=== PATIENT | male | born 1970 | race African-American/Black ===

== ENCOUNTER 2018-02-17 06:07 | Emergency (ER) | payer SELFPAY ==
[~2018-02-17] VITALS: Ht 177.8 cm; Wt 68.0 kg
--- NOTE | 2018-02-17 06:17 | Emergency Room Report ---
History of Present Illness General Chief Complaint: To Be Triaged Source: Patient Present Illness HPI Is a 39-year-old male brought in by police for medical clearance. He has a small cut on his palm of his right hand. He refuse any treatment. Denies any fever chills but denies any nausea vomiting. No pain. No other injury. Allergies: Coded Allergies: No Known Allergies (Unverified , 02/17/18) Patient History Past Medical History: see triage record, old chart reviewed Past Surgical History: none Pertinent Family History: none Social History: Denies: smoking Immunizations: other Reviewed Nursing Documentation: PMH: Agreed; PSxH: Agreed Review of Systems Eye: Denies: eye pain, blurred vision ENT: Denies: ear pain, nose congestion, throat swelling Respiratory: Denies: cough, shortness of breath Cardiovascular: Denies: chest pain, palpitations Gastrointestinal: Denies: abdominal pain, diarrhea, nausea, vomiting Musculoskeletal: Denies: back pain, joint pain Skin: Denies: rash Neurological: Denies: headache, numbness Endocrine: Denies: increased thirst, increased urine Hematologic/Lymphatic: Denies: easy bruising All Other Systems: negative except mentioned in HPI Physical Exam Sp02 EP Interpretation: reviewed, normal General Appearance: well appearing, no apparent distress, alert Head: normocephalic, atraumatic Eyes: bilateral eye PERRL, bilateral eye EOMI ENT: hearing grossly normal, normal pharynx Neck: full range of motion, supple, no meningismus Respiratory: chest non-tender, lungs clear, normal breath sounds Cardiovascular #1: regular rate, rhythm, no murmur Gastrointestinal: normal bowel sounds, non tender, no mass, no organomegaly, no bruit, non-distended Musculoskeletal: back normal, gait/station normal, normal range of motion, other - Small abrasion to the palm of right hand Psychiatric: mood/affect normal Skin: warm/dry Medical Decision Making Diagnostic Impression: Primary Impression: Laceration of right hand Qualified Codes: S61.411A - Laceration without foreign body of right hand, initial encounter Additional Impression: Examination for medicolegal reason ER Course Patient presents for medical clearance. He refuse any treatment. Laceration is very superficial. I cannot check for foreign body since patient does not want me to check. He is otherwise stable. We'll discharge home. Status: unchanged Disposition: D/C TO LAW ENFORCEMENT IN [facility]UST Condition: Stable Additional Instructions: Follow-up with your doctor in a week. Return if symptom worsen. Joseph Lan MD Feb 17, 2018 06:17
[2018-02-17 06:21] VITALS: BP 0/0
== END 2018-02-17 07:25 ==
LOC: EMR 06:30
DX: S61.411A Laceration without foreign body of right hand, initial encounter (principal); X58.XXXA Exposure to other specified factors, initial encounter
CPT/HCPCS: 99283